=== PATIENT | female | born 1975 | race Caucasian/White ===

== ENCOUNTER → 2021-11-09 10:46 | Outpatient (BNVA) | payer OTHER, SELFPAY | PROVIDERS: Family Provider Nurse Practitioner Family; PCP Nurse Practitioner Family; Visit Provider Internal Medicine | DX: M06.9 Rheumatoid arthritis, unspecified (principal); R21 Rash and other nonspecific skin eruption; H93.13 Tinnitus, bilateral; Z11.59 Encounter for screening for other viral diseases; Z11.1 Encounter for screening for respiratory tuberculosis | CPT/HCPCS: 36415; 72202; 73120; 80053; 81003; 83516; 85025; 85651; 86036; 86140; 86160; 86162; 86200; 86235; 86255; 86376; 86480; 86704; 86803; 87340; 99204 ==

== ENCOUNTER → 2021-11-30 13:32 | Outpatient (BNVA) | payer OTHER, SELFPAY | PROVIDERS: Family Provider Nurse Practitioner Family; PCP Nurse Practitioner Family; Visit Provider Internal Medicine | DX: M25.50 Pain in unspecified joint (principal); R70.0 Elevated erythrocyte sedimentation rate | CPT/HCPCS: 73560; 99214 ==

== ENCOUNTER → 2022-01-29 16:18 | Outpatient (BNVA) | payer MEDICAID, SELFPAY | PROVIDERS: Family Provider Nurse Practitioner Family; PCP Nurse Practitioner Family; Visit Provider Internal Medicine | DX: R70.0 Elevated erythrocyte sedimentation rate (principal); M25.50 Pain in unspecified joint | CPT/HCPCS: 80053; 85025; 85651; 86140 ==

== ENCOUNTER 2023-05-23 09:05 | Outpatient (CLI) | payer OTHER, MEDICAID, SELFPAY ==
--- NOTE | 2023-05-23 09:14 | XR_ITS ---
WS: [id number] XR chest 2V* [id number] REASON FOR EXAM: URI FINDINGS: No comparison. Mild tortuosity and ectasia of the thoracic aorta. Normal heart size. 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 On the PA view there is an area of vaguely increased lung opacity with small cystic-appearing areas. Cannot identify same area with certainty on the lateral view. Mild scoliosis of the thoracic spine convex right. Mild changes of degenerative spondylosis in the mi d and lower thoracic spine. IMPRESSION: Abnormality in the right lung as above. This may represent a chronic abnormality such as dysplastic a zygous lobe or old fibronodular granulomatous disease, however cannot exclude an acute or subacute in flammatory process without prior examination.
== END 2023-05-23 09:06 | disposition home or self-care (01) ==
PROVIDERS: Family Provider Nurse Practitioner Family; PCP Nurse Practitioner Family; Visit Provider Nurse Practitioner Family
DX: J06.9 Acute upper respiratory infection, unspecified (principal); R91.8 Other nonspecific abnormal finding of lung field
CPT/HCPCS: 71046

== ENCOUNTER 2023-06-21 15:18 | Outpatient (CLI) | payer OTHER, MEDICAID, SELFPAY ==
--- NOTE | 2023-06-21 15:23 | XR_ITS ---
WS: [id number] Examination: XR chest 2V* [id number] Reason for Exam: URI/FOLLOW UP CXR Date: June 21, 2023 Comparison: May 23, 2023 Findings: The cardiomediastinal silhouette is within normal limits. There is no failure or effusion. There is no dense consolidation. The previously identified finding projected over the right upper lobe is stable. Impression: There is no failure or effusion. There is no new consolidation. The suspected abnormality in the right upper lobe is unchanged. If clinically indicated further evalu ation with CT may be of benefit.
== END 2023-06-21 15:19 | disposition home or self-care (01) ==
PROVIDERS: PCP Nurse Practitioner Family; Visit Provider Nurse Practitioner Family
DX: J06.9 Acute upper respiratory infection, unspecified (principal); R91.8 Other nonspecific abnormal finding of lung field
CPT/HCPCS: 71046